=== PATIENT | female | born 1955 | race Caucasian/White ===

== ENCOUNTER → 2018-10-23 09:44 | Outpatient (CLI) | payer MEDICARE, SELFPAY ==
--- NOTE | 2018-10-23 | PATH_ITS ---
Note [facility] Accession Number: [id number] TESTS RESULT FLAG UNITS REF RANGE LAB Clinician Provided Cytology Information No. of containers..01 ThinPrep Vial No. of containers..08 Previously Prepared Cytology Slide RIGHT THYROID NODULE DIAGNOSIS: 02 RIGHT THYROID NODULE: BENIGN. BETHESDA CATEGORY II. SPECIMEN CONSISTS OF BENIGN FOLLICULAR CELLS, HEMOSIDERIN-LADEN MACROPHAGES, COLLOID, AND BLOOD. THIS PATTERN IS CONSISTENT WITH A BENIGN FOLLICULAR NODULE. Pathologist ICD10: 02 E04.1 Gina Danielle MD, Pathologist NPI- [id number] Alf Ruth, Carpet Floor Layer Apprentice ([facility]) 01 20 CC, BROWN, CLEAR RECEIVED: 4 ALCOHOL FIXED AND 4 QUICK STAINED SLIDES. /VDU FLAG LEGEND: L-Low Normal,H-High Normal,LL-Alert Low,HH-Alert High <-Panic Low,>-Panic High,A-Abnormal,AA-Critical Abnormal Performed at: 01 =Z [facility] [address], [place] [address] Vahe Ivory MD, 02 [facility] [address] [place] [id number] Gina Danielle MD, Performed at: 01 [facility] [address], [place], [place] [id number] MD Vahe Ivory MD Phone: [phone]
--- NOTE | 2018-10-23 | DI.US.S_ITS ---
PROCEDURE: US FINE NEEDLE ASPIRATION INDICATIONS: THYROID NODULE TECHNIQUE: The indications, alternatives, benefits, risks, and complications of the procedure were explained to the patient. Written informed consent was obtained and placed in the chart. Real-time sonography was utilized to choose the site for percutaneous right thyroid nodule sampling. The skin was prepped and draped in the usual sterile fashion. 1% lidocaine was infiltrated down to the site of interest. Serial hypodermic needles were then advanced into the site of interest under direct sonographic visualization, and serial needle aspirates were obtained. The needles were then withdrawn; a bandage was applied to the procedure site. COMPARISON: None. FINDINGS: Sample site(s): Right mid thyroid lobe nodule Needle: 25 gauge needles Number of passes: 5 Medications: 1% lidocaine for local anaesthesia. Complications: None. IMPRESSION: Successful ultrasound-guided rounded right middle third thyroid nodule fine needle aspiration, with cytology results pending. Dictated by: Helio Spaulding M.D. on 10/23/2018 at 13:06 Approved by: Helio Spaulding M.D. on 10/23/2018 at 13:07
== END ==
PROVIDERS: PCP Student in an Organized Health Care Education/Training Program; Visit Provider Student in an Organized Health Care Education/Training Program
DX: E04.1 Nontoxic single thyroid nodule (principal)
CPT/HCPCS: 10005

== ENCOUNTER 2019-08-01 08:22 | Day surgery (SDC) | payer MEDICARE, SELFPAY ==
[2019-08-01] MEDS: PROPARACAINE 0.5% OPHTH SOL 2 DROPS EYE-OP (08:53)
[2019-08-01 08:54] VITALS: BP 121/71; PULSE 78; RESP 18; TEMP 36.5; O2SAT 97; BMI 32.5
[2019-08-01] MEDS: CATARACT EYE COMPOUND (10 DROPS/SYRINGE) 3 DROPS EYE-OP (08:59)
--- NOTE | 2019-08-01 09:24 | PM.PREOP ---
Pre-operative Note Interval Note History & Physical reviewed/Exam performed by Physician: Yes Changes to H&P: No
[2019-08-01] MEDS: LIDOCAINE 2% INJ SDV 2 ML INJ (09:40)
[2019-08-01] MEDS: PHENYLEPHRINE/LIDOCAINE VIAL (OR) 0.2 ML EYE-OP (09:41)
[2019-08-01] MEDS: TETRACAINE 0.5% OPHTH DROPS 4 ML 2 DROPS EYE-OP (09:41)
[2019-08-01] MEDS: MOXIFLOXACIN INJ 5 MG/ML VIAL EYE-OP (09:41)
[2019-08-01] MEDS: BALANCED SALT IRRIG SOLN NO.2 500 ML, EPINEPHrine 1 MG IRR (09:42)
[2019-08-01] MEDS: CHONDROIDTIN/SOD HYALURONATE 1.05 ML SYRINGE INTRAOCULA (09:43)
[2019-08-01] MEDS: BALANCED SALT IRRIG SOLN NO.2 15 ML 5 ML IRR (09:44)
--- NOTE | 2019-08-01 10:06 | PM.OP.1 ---
Procedure & Clinicians Procedure: Cataract extraction with intraocular lens implant, right Same procedure as scheduled: Yes Indications: Visually significant age related nuclear sclerosis, right Surgeon: Zach No Click Yes if Unassisted: Yes Anesthesia Type: MAC +/- Operative Notes Procedure in detail: The patient was brought to the operating suite. The correct patient, surgical site and lens were confirmed. 0.5 % tetracaine drops were placed in the right eye. The patient was prepped and draped in the typical sterile manner. A lid speculum was placed in the eye. 2% lidocaine was placed on the eye. A paracentesis port was created with a side-port blade. 0.1 mL of 1% preservative free lidocaine with phenylephrine was injected into the anterior chamber. Viscoelastic was injected into the anterior chamber. A 2.6mm keratome was used to create a clear corneal temporal incision. Cystotome and Utrata forceps were used to create a continuous curvilinear capsulorrhexis. Balanced salt solution was used to hydrodissect the nucleus. Phacoemulsification was used to remove the lens. The capsular bag was inflated with viscoelastic. A Lindsey ZCBOO +22.5D lens was inserted into the capsule. Viscoelastic was removed and the wound hydrated and sealed with Resure glue. The wound was found to be leak free and the eye was assessed to be at normal physiologic pressure. 0.1mL Vigamox was injected into the anterior chamber. The lid speculum was removed and the patient left the operating room in excellent condition. Complications: none Post-operative Condition: stable Disposition: same day surgery
[2019-08-01 10:15] VITALS: BP 137/79; PULSE 75; RESP 16; TEMP 36.4; O2SAT 95
[2019-08-01 10:40] VITALS: BP 141/72; PULSE 73; RESP 16; TEMP 36.2; O2SAT 95
== END 2019-08-01 10:45 | disposition home or self-care (01) ==
LOC: OR 08:29
PROVIDERS: PCP Student in an Organized Health Care Education/Training Program; Visit Provider Ophthalmology
PROC: (CPT 66984; principal; 2019-08-01 09:30)
DX: H25.11 Age-related nuclear cataract, right eye (principal); G47.30 Sleep apnea, unspecified; F32.9 Major depressive disorder, single episode, unspecified; F41.9 Anxiety disorder, unspecified
CPT/HCPCS: 66984; J0171; J2250; J3010

== ENCOUNTER 2019-09-26 07:22 | Day surgery (SDC) | payer MEDICARE, SELFPAY ==
[2019-09-26 07:39] VITALS: BP 133/82; PULSE 85; RESP 15; TEMP 36.4; O2SAT 94; BMI 33.7
[2019-09-26] MEDS: PROPARACAINE 0.5% OPHTH SOL 2 DROPS EYE-OP (07:47)
[2019-09-26] MEDS: CATARACT EYE COMPOUND (10 DROPS/SYRINGE) 3 DROPS EYE-OP (07:47)
--- NOTE | 2019-09-26 08:27 | PM.PREOP ---
Pre-operative Note Interval Note History & Physical reviewed/Exam performed by Physician: Yes Changes to H&P: No
[2019-09-26] MEDS: TETRACAINE 0.5% OPHTH DROPS 4 ML 2 DROPS EYE-OP (08:35)
[2019-09-26] MEDS: CHONDROIDTIN/SOD HYALURONATE 1.05 ML SYRINGE INTRAOCULA (08:53)
[2019-09-26] MEDS: BALANCED SALT IRRIG SOLN NO.2 15 ML 5 ML IRR (08:53)
[2019-09-26] MEDS: LIDOCAINE 2% INJ SDV 2 ML INJ (08:54)
[2019-09-26] MEDS: PHENYLEPHRINE/LIDOCAINE VIAL (OR) 0.2 ML EYE-OP (08:54)
[2019-09-26] MEDS: MOXIFLOXACIN INJ 5 MG/ML VIAL EYE-OP (08:54)
[2019-09-26] MEDS: BALANCED SALT IRRIG SOLN NO.2 500 ML, EPINEPHrine 1 MG IRR (08:55)
--- NOTE | 2019-09-26 09:12 | PM.OP.1 ---
Procedure & Clinicians Procedure: Cataract extraction with intraocular lens implant, left. Same procedure as scheduled: Yes Indications: Visually significant age related nuclear sclerosis, left Surgeon: Zach No Click Yes if Unassisted: Yes Anesthesia Type: MAC +/- Operative Notes Procedure in detail: The patient was brought to the operating suite. The correct patient, surgical site and lens were confirmed. 0.5 % tetracaine drops were placed in the left eye. The patient was prepped and draped in the typical sterile manner. A lid speculum was placed in the eye. 2% lidocaine was placed on the eye. A paracentesis port was created with a side-port blade. 0.1 mL of 1% preservative free lidocaine with phenylephrine was injected into the anterior chamber. Viscoelastic was injected into the anterior chamber. A 2.6mm keratome was used to create a clear corneal temporal incision. Cystotome and Utrata forceps were used to create a continuous curvilinear capsulorrhexis. Balanced salt solution was used to hydrodissect the nucleus. Phacoemulsification was used to remove the lens. The capsular bag was inflated with viscoelastic. A Lindsey ZCBOO +22.5D lens was inserted into the capsule. Viscoelastic was removed and the wound hydrated. The wound was found to be leak free and the eye was assessed to be at normal physiologic pressure. 0.1mL Vigamox was injected into the anterior chamber. The lid speculum was removed and the patient left the operating room in excellent condition. Complications: none Post-operative Condition: stable Disposition: same day surgery
[2019-09-26 09:14] VITALS: BP 124/77; PULSE 69; RESP 16; TEMP 36.1; O2SAT 94
--- NOTE | 2019-09-26 09:33 | SUR.PHASEII ---
Discharge instructions given to pt and pt's . Both state they understand d/c instructions. No complaints voiced.
== END 2019-09-26 09:36 | disposition home or self-care (01) ==
PROVIDERS: PCP Student in an Organized Health Care Education/Training Program; Visit Provider Ophthalmology
PROC: (CPT 66984; principal; 2019-09-26 08:30)
DX: H25.12 Age-related nuclear cataract, left eye (principal); G47.30 Sleep apnea, unspecified; F32.9 Major depressive disorder, single episode, unspecified; F41.9 Anxiety disorder, unspecified
CPT/HCPCS: 66984; J0171; J2250; J3010